=== PATIENT | female | born 1945 | race Caucasian/White ===

== ENCOUNTER 2019-10-20 17:19 | Emergency (ER) | payer MEDICARE, BC, SELFPAY ==
[2019-10-20 17:19] VITALS: BP 144/70; PULSE 97; RESP 20; TEMP 37.2; O2SAT 100
--- NOTE | 2019-10-20 17:27 | ED.GENADULT ---
HPI - General Adult General Chief complaint: Ear Stated complaint: Ear Time Seen by Provider: 10/20/19 17:27 Source: patient and RN notes reviewed Mode of arrival: ambulatory Limitations: no limitations History of Present Illness HPI narrative: 74-year-old male presents with complaints of bilateral cerumen impaction, itching, otalgia for 1 day. Gissel has had diminished hearing and clogged ears for the past 2-3 years. Today she went to the construction carpenter for assessment for new hearing aids and sent out to have ears cleaned out. Denies swimming or getting water into ear. Denies URI symptoms, No high fevers or chills. Denies injury to the ear. No nasal drainage and congestion. Denies nausea, vomiting, tinnitus, and dizziness. The patient reports she have not been diagnosed with COVID-19. The patient reports she is not waiting for the results of a COVID-19 lab test. The patient reports she do not have fever, chills, weakness, fatigue, myalgia, or facial swelling. The patient reports she do not have a new or worsening cough or shortness of breath. Denies chest pain. The patient reports she do not have any rhinorrhea, congestion, sore throat, abdominal pain, and diarrhea. Tolerating po intake well. Denies recent traveling. Denies concerns for COVID-19 or exposures been home with limited outdoor exposure except for essential household needs and return home. At this time, patient is not suspected of having COVID-19. Some parts of this dictation were generated by voice recognition software and may contain typographical and/or grammatical inaccuracies. Related Data Home Medications Medication Instructions Recorded Confirmed bupropion HCl 150 mg PO BID 10/20/19 10/20/19 folic acid 1 mg PO DAILY 10/20/19 10/20/19 furosemide 40 mg PO DAILY 10/20/19 10/20/19 levothyroxine 50 mcg PO DAILY 10/20/19 10/20/19 metoprolol succinate 50 mg PO DAILY 10/20/19 10/20/19 omeprazole 40 mg PO DAILY 10/20/19 10/20/19 potassium chloride 20 meq PO DAILY 10/20/19 10/20/19 venlafaxine 150 mg PO DAILY 10/20/19 10/20/19 Allergies Allergy/AdvReac Type Severity Reaction Status Date / Time No Known Allergies Allergy Verified 10/20/19 17:24 Review of Systems Review of Systems: Narrative: CONSTITUTIONAL: Denies fever, chills, sweats. EYES: Denies visual changes, redness, discharge. ENT: Denies rhinorrhea, congestion, sore throat, ear drainage. Complains of bilateral cerumen impaction, itching, otalgia. CARDIOVASCULAR: Denies chest pain, palpitations, edema. RESPIRATORY: Denies dyspnea, wheezing, cough. GASTROINTESTINAL: Denies abdominal pain, nausea, vomiting, diarrhea. GENITOURINARY: Denies dysuria, hematuria, abnormal discharge. SKIN: Denies rash or itching. MUSCULOSKELETAL: Denies acute back pain, joint pain, or myalgia. NEUROLOGIC: Denies numbness or focal weakness. PSYCHIATRIC: Denies anxiety or depression. All systems reviewed & are unremarkable except as noted in HPI and below PMFSH Past Medical History Medical History (Updated 10/20/19 @ 19:20 by ANNE Souza) Anxiety FH: cataracts RT History of gastroesophageal reflux (GERD) [place] (hard of hearing) working on getting a second pair of hearing aids says the 1st pair din not work Hypothyroidism Retinal detachment LT Surgical History Surgical History (Updated 10/20/19 @ 17:53 by ANNE Souza) History of hysterectomy Family History Family History (Updated 10/20/19 @ 17:54 by ANNE Souza) Father No problems noted. Mother No problems noted. Social History Social History (Updated 10/20/19 @ 17:55 by ANNE Souza) Tobacco type: cigarettes Second hand tobacco smoke exposure: No Additional smoking assessment comments: Started smoking at 63 years old, light smoker Substance use: never Living arrangements: with family Occupation/Education: retired Gender identity (if verbalized by the
== END 2019-10-20 17:54 | disposition home or self-care (01) ==
PROVIDERS: Emergency Provider Nurse Practitioner Family; PCP Internal Medicine Infectious Disease
DX: H61.23 Impacted cerumen, bilateral (principal)
CPT/HCPCS: 69210; 99212; G0463